=== PATIENT | male | born 1960 | race Caucasian/White ===

== ENCOUNTER 2021-02-10 10:08 | Outpatient (CLI) | payer MEDICARE, MEDICAID ==
[2021-02-10 10:27] LABS: BASOPHILS % (AUTO) 1 % (0-1); EOSINOPHILS % (AUTO) 2 % (1-7); LYMPHOCYTES % (AUTO) 36 % (22-44); MEAN CORPUSCULAR HEMOGLOBIN 31.2 pg (27.5-34.5); MEAN CORPUSCULAR HGB CONC 34.6 g/dL (33.2-36.2); MEAN PLATELET VOLUME 6.4 fL (7.4-10.4); MONOCYTES % (AUTO) 6 % (2-9); NEUTROPHILS % (AUTO) 56 % (42-75); PLATELET COUNT 176 x10^3/uL (130-400); RED CELL DISTRIBUTION WIDTH 13.9 % (9.4-14.8)
[2021-02-10 10:38] LABS: ALANINE AMINOTRANSFERASE 32 U/L (12-78); ALBUMIN 4.1 g/dL (3.4-5.0); ANION GAP 5 mmol/L (5-15); CALCIUM 8.9 mg/dL (8.5-10.1); CHLORIDE 105 mmol/L (98-107)
[2021-02-10 10:39] LABS: MICROSCOPIC NOT IND
[2021-02-10 10:47] LABS: ALKALINE PHOSPHATASE 69 U/L (45-117); BILIRUBIN,TOTAL 0.4 mg/dL (0.2-1.0); CHOL/HDL RATIO 5.5; CHOLESTEROL, TOTAL 285 mg/dL (140-239); CREATININE 0.87 mg/dL (0.7-1.3); FREE T4 (FREE THYROXINE) 0.76 ng/dL (0.76-1.46); HDL CHOL % 18 % (26-37); HDL CHOLESTEROL (DIRECT) 52 mg/dL (40-60); LDL CHOLESTEROL,CALCULATED 161 mg/dL (54-169); LDL/HDL RATIO 3.1 (0.5-3.0); TRIGLYCERIDES 362 mg/dL (50-200); VLDL CHOLESTEROL 72 mg/dL (0-25)
== END 2021-02-10 23:59 | disposition home or self-care (01) ==
LOC: LAB 10:08
PROVIDERS: ATTEND Internal Medicine Geriatric Medicine
DX: Z12.5 Encounter for screening for malignant neoplasm of prostate (principal); E78.5 Hyperlipidemia, unspecified; E55.9 Vitamin D deficiency, unspecified; E03.9 Hypothyroidism, unspecified; R35.1 Nocturia; R73.9 Hyperglycemia, unspecified; R53.83 Other fatigue; G40.909 Epilepsy, unspecified, not intractable, without status epilepticus
CPT/HCPCS: 36415; 80053; 80061; 80185; 81003; 82306; 84153; 84439; 84443; 85025; G0103